=== PATIENT | male | born 1995 | race Caucasian/White ===

== ENCOUNTER 2016-08-12 01:16 | Emergency (ER) | payer OTHER ==
--- NOTE | 2016-08-12 16:22 | ED CLINICAL REPORT ---
Clinical Report - Physicians/Mid Levels Located Within [facility] [address] [place] [address] 08/12/2016 1:16 Patient: REINIER HILL I Time Seen: 0121. Arrived- (police). Historian- patient (police). Referred (law enforcement). HISTORY OF PRESENT ILLNESS Chief Complaint: SUICIDAL THOUGHTS. This started two weeks ago. Has been depressed. Has had suicidal thoughts. Has highly lethal plan for suicide by jumping from height. The symptoms are described as severe. No injury is present. Additional history - recently released from nursing home. reports "family want's nothing to do with me". Similar symptoms previously: REVIEW OF SYSTEMS No headache, chest pain, abdominal pain, fever or skin rash. All systems otherwise negative, except as recorded above. PAST HISTORY See nurses notes. Medications: None. Allergies: Penicillin. SOCIAL HISTORY Smoker- current status unknown. Alcohol use. History of drug use. No social support. No place to stay. ADDITIONAL NOTES The nursing notes have been reviewed. PHYSICAL EXAM Vital Signs: 08/12/2016 01:27 BP: 117/85. HR: 123. RR: 20. O2 saturation: 96%. Temp: 98.3 F. Pain level now: 10/10. Blood pressure normal. Oxygen saturation normal. Appearance: Alert. No acute distress. Appearance is normal. Eyes: Pupils equal, round and reactive to light. Neck: Normal inspection. Neck supple. CVS: Normal heart rate and rhythm. Heart sounds normal. Respiratory: Chest nontender. Abdomen: Soft and nontender. Skin: Skin warm and dry. Normal skin color. Normal skin turgor. Extremities: Extremities exhibit normal ROM. No lower extremity edema. Psych / Neuro: Oriented X 3. Appears depressed. (congruent affect). Speech normal. Thought process normal. Cranial nerves normal (as tested). No cerebellar findings. No motor deficit. No sensory deficit. Reflexes normal. LABS, X-RAYS, AND EKG Laboratory Tests: CBC w Diff: (REBECA: 08/12/2016 01:45) ( MsgRcvd 08/12/2016 02:04) Final results Test Result Flag Units (Reference) WHITE BLOOD COUNT 9.2 K/uL (4.5-11.5) RED BLOOD COUNT 4.76 M/uL (4.50-5.90) HEMOGLOBIN 14.5 gm/dL (13.5-17.5) HEMATOCRIT 42.6 % (41.0-53.0) MEAN CELL VOLUME 90 fL (80-100) MEAN CORPUSCULAR HGB 30 pg (26-34) MEAN CORPUSCULAR HGB CONC 34 g/dL (31-37) RED CELL DISTRIBUTION WIDTH 13.7 % (11.6-14.8) PLATELET COUNT 328 K/uL (150-400) NEUTROPHIL % 74.7 % (50-75) LYMPH % 19.1 L % (25-40) MONO % 5.6 % (3-14) EOSINOPHIL % 0.3 % (0-4) BASOPHIL % 0.3 % (0-2) PT with INR: (REBECA: 08/12/2016 01:45) ( [facility] 08/12/2016 02:23) Final results Test Result Flag Units (Reference) INR 1.0 (0.8-1.2) Low Intensity Therapy: INR 1.5-2.0 PT range 18.5-23.1Mod.Intensity Therapy: INR 2.0-3.0 PT range 23.1-31.5High Intensity Therapy: INR 2.5-3.5 PT range 27.4-35.5High Intensity Therapy 2: INR 3.0-4.0 PT range 31.5-39.3 TSH: (REBECA: 08/12/2016 01:45) ( [facility] 08/12/2016 05:26) Final results Test Result Flag Units (Reference) THYROID STIMULATING HORMONE 0.409 uIU/mL (0.34-3.74) Urine Drug Screen: (REBECA: 08/12/2016 02:15) ( [facility] 08/12/2016 02:48) Final results Test Result Flag Units (Reference) AMPHETAMINE/METHAMPHETAMINE POSITIVE H (NEGATIVE) BARBITURATE NEGATIVE (NEGATIVE) BENZODIAZEPINE NEGATIVE (NEGATIVE) CANNABINOID POSITIVE H (NEGATIVE) COCAINE NEGATIVE (NEGATIVE) ECSTASY NEGATIVE (NEGATIVE) METHADONE NEGATIVE (NEGATIVE) OPIATE POSITIVE H (NEGATIVE) The urine drug screen is a qualitative screening test fordrug overdose and abuse. All screen results should beconsidered as presumptive.Drugs screened for are as follows:BenzodiazepinesCocaineAmphetamines/MetamphetaminesTHC (Tetrahydrocannabinol)OpiatesBarbituratesEcstasyMethadonePositive results are unconfirmed. For confirmation, notifythe lab for the specimen to be sent to the reference lab.All confirmations must be performed by a differentmethodology.The ingestion of natural herbal and plant productscontaining Ephedra/Ephedra metabolites can produce in urineone or more substances capable of cross reacting withamphetamine/methamphetamine immunoassays. These testsprovide a preliminary result only. A more specificalternative chemical method must be used to obtain aconfirmed analytical result. Salicylate Level: (REBECA: 08/12/2016 01:45) ( MsgRcvd 08/12/2016 02:35) Final results Test Result Flag Units (Reference) SALICYLATE <2.8 L mg/dL (2.8-20) CMP: (REBECA: 08/12/2016 01:45) ( MsgRcvd 08/12/2016 02:38) Final results Test Result Flag Units (Reference) GLUCOSE 115 H mg/dL (70-110) BUN 14 mg/dL (7-18) CREATININE 0.7 mg/dL (0.6-1.3) Estimated GFR >60 mL/min Estimated GFR- >60 mL/min Note: Persistent reduction over 3 months in eGFR<60 mL/min/1.73 m2 defines CKD. Patients with eGFR values>=60 mL/min/1.73 m2 may also have CKD if evidence ofpersistent proteinuria. Additional information may be foundat www.kidney.org. SODIUM 144 mmol/L (136-145) POTASSIUM 3.7 mmol/L (3.5-5.1) CHLORIDE 104 mmol/L (98-107) CARBON DIOXIDE 29 mmol/L (21-32) CALCIUM 9.0 mg/dL (8.5-10.1) TOTAL PROTEIN 7.8 g/dL (6.4-8.2) ALBUMIN 3.8 g/dL (3.3-5.0) BILIRUBIN, TOTAL 1.0 mg/dL (0.0-1.0) ALKALINE PHOSPHATASE 76 U/L (46-116) AST (SGOT) 32 U/L (15-37) ALT (SGPT) 35 U/L (12-78) ACETAMINOPHEN < 2.0 L ug/mL (10-30) ETHYL ALCOHOL <3 L mg/dL (3-10) . PROGRESS AND PROCEDURES Course of Care: the patient is a cooperative 20-year-old male presenting for evaluation of suicidal ideation. The patient reports having the idea of jumping off a bridge. method for suicidal ideation has high lethality. Patient will bemonitored here in the emergency department and medically cleared for psychiatric evaluation. Patient reports no ingestion history. Patient's workup was noted for the findings above. Workup does not show any acute abnormalities. Had discussion with patient in regards to his workup here in the emergency department andplan for transfer. Patient is agreeable to this at this time. Patient is also been evaluated bythe counselor and we are currently awaiting placement. Discussed with patient workup,diagnosis, and plan of care. All questions have been answered. Patient is agreeable to treatment plan. Patient was transferred without Incident. CLINICAL IMPRESSION Suicidal ideation (acute). Adjustment disorder with disturbance of conduct and depressed mood. Substance abuse- methamphetamines. (Electronically signed by Margarito Connor Dr. 08/19/2016 10:15)
--- NOTE | 2016-08-12 16:22 | ED ORDER SUMMARY ---
..... Patient: REINIER HILL I OrderSheet [facility] VisitID: [id number] [place] [address] 20y, M Registration Date/Time: 08/12/2016 ORDER SHEET Weight: 65.7 kg (stated) Allergies: Penicillin GENERAL ORDERS: CBC w Diff Urgent (01:08/12/2016 Salvador Wilson) (Ack 1:52 AMcQuoid ER Tech1) (1:53 AMcQuoid ER Tech1) CMP Urgent (:08/12/2016 Salvador Wilson) (Ack 1:52 AMcQuoid ER Tech1) (1:53 AMcQuoid ER Tech1) PT with INR Urgent (:08/12/2016 Salvador Wilson) (Ack 1:52 AMcQuoid ER Tech1) (1:53 AMcQuoid ER Tech1) Ethyl Alcohol Urgent (:08/12/2016 Salvador Wilson) (Ack 1:52 AMcQuoid ER Tech1) (1:53 AMcQuoid ER Tech1) Urine Drug Screen Urgent (:08/12/2016 Salvador Wilson) (Ack 1:52 AMcQuoid ER Tech1) (1:53 AMcQuoid ER Tech1) Acetaminophen Level Urgent (:08/12/2016 Salvador Wilson) (Ack 1:52 AMcQuoid ER Tech1) (1:53 AMcQuoid ER Tech1) Salicylate Level Urgent (:08/12/2016 Salvador Wilson) (Ack 1:52 AMcQuoid ER Tech1) (1:53 AMcQuoid ER Tech1) Suicide Precautions (:08/12/2016 Salvador Wilson) (1:42 HSoule) TSH Urgent (05:01 08/12/2016 Salvador Wilson) (5:04 AMcQuoid ER Tech1) MEDICATION ORDERS: IV FLUIDS: ORDER SHEET NOTES: [Electronically signed by Iesha Mcallister R.N. (19:53 08/12/2016)] [Electronically signed by Margarito Connor Dr. (10:15 08/19/2016)] [Electronically locked/signed by Iesha Mcallister R.N. (19:53 08/12/2016)]
--- NOTE | 2016-08-12 16:22 | ED ORDER SUMMARY ---
..... Patient: REINIER HILL I OrderSheet [facility] VisitID: [id number] [place] [address] 20y, M Registration Date/Time: 08/12/2016 ORDER SHEET Weight: 65.7 kg (stated) Allergies: Penicillin GENERAL ORDERS: CBC w Diff Urgent (01:08/12/2016 Salvador Wilson) (Ack 1:52 AMcQuoid ER Tech1) (1:53 AMcQuoid ER Tech1) CMP Urgent (:08/12/2016 Salvador Wilson) (Ack 1:52 AMcQuoid ER Tech1) (1:53 AMcQuoid ER Tech1) PT with INR Urgent (:08/12/2016 Salvador Wilson) (Ack 1:52 AMcQuoid ER Tech1) (1:53 AMcQuoid ER Tech1) Ethyl Alcohol Urgent (:08/12/2016 Salvador Wilson) (Ack 1:52 AMcQuoid ER Tech1) (1:53 AMcQuoid ER Tech1) Urine Drug Screen Urgent (:08/12/2016 Salvador Wilson) (Ack 1:52 AMcQuoid ER Tech1) (1:53 AMcQuoid ER Tech1) Acetaminophen Level Urgent (:08/12/2016 Salvador Wilson) (Ack 1:52 AMcQuoid ER Tech1) (1:53 AMcQuoid ER Tech1) Salicylate Level Urgent (:08/12/2016 Salvador Wilson) (Ack 1:52 AMcQuoid ER Tech1) (1:53 AMcQuoid ER Tech1) Suicide Precautions (:08/12/2016 Salvador Wilson) (1:42 HSoule) TSH Urgent (05:01 08/12/2016 Salvador Wilson) (5:04 AMcQuoid ER Tech1) MEDICATION ORDERS: IV FLUIDS: ORDER SHEET NOTES: [Electronically signed by Iesha Mcallister R.N. (19:53 08/12/2016)] [Electronically signed by Margarito Connor Dr. (10:15 08/19/2016)] [Electronically locked/signed by Iesha Mcallister R.N. (19:53 08/12/2016)]
--- NOTE | 2016-08-12 16:22 | ED NURSING NOTES ---
Clinical Report - Nurses [facility] [place] [address] 08/12/2016 1:16 [id number] Triage time 01:20 Aug 12 2016. Acuity: LEVEL 3. Chief Complaint: DEPRESSION and SUICIDAL THOUGHTS. SEPSIS SCREEN: Sepsis Screen: negative. Negative (no infection suspected/documented). KHADIJAH COMA SCORE: Khadijah Coma Scale: 15- eyes open spontaneously (4); best verbal response- oriented x 4 (5); best motor response- obeys commands (6). --01:34 Mi Tyson 01:27 08/12/16. BP: 117/85. HR: 123. RR: 20. O2 saturation: 96% on room air. Temp: 98.3 F (oral). Pain level now: 03/26. --01:34 Mi Tyson. Weight: 65.7 kg stated. Height/Length: 70 inches Per Patient. BMI: 20.8. --01:32 Mi Tyson. Medications None. --01:31 Mi Tyson. Medication/allergy information source: the patient. --01:34 Mi Tyson. Allergies Penicillin. --01:31 Mi Tyson. History Historian: patient. Arrived (Police, not in custody) and unaccompanied. Primary physician (none). Onset: just prior to arrival. ( Police report they came to a call to a convenience store where the patient was caught stealing alcohol. Store staff declined to press charges. Officers asked the patient what was going on, he reported that he was depressed and wanted to drink a bottle of alcohol and not wake up. Patient reported to officers that he wanted to jump off a bridge tonight but a friend intervened. Patient asked for help and officers brought patient into the hospital. Patient reports to nurse that he has been depressed. He states he is coming down off drugs and has no friends or family that want to be around him. He reports being homeless and recently out of senior care. Additionally patient reports all over body pain due to withdrawal. He reports years of drug abuse with multiple attempts to get clean.). PAST MEDICAL HX: Immunizations: status is unknown. SOCIAL HX: Light tobacco smoker (cigarette)- less than 1/2 a pack per day. Occasional alcohol use. History of drug use: narcotics, heroin, methamphetamines. Recently used drugs yesterday. No infectious disease exposure. ABUSE ASSESSMENT: No report of abuse. SELF HARM ASSESSMENT: A self harm assessment was performed. The patient answered "yes" to the question "Have you recently felt down, depressed, or hopeless?", "Have you noticed less interest or pleasure in doing things?", "Do you have thoughts of harming or killing yourself?" and "Are you here because you tried to hurt yourself?" and "no" to the question "Have you ever tried to hurt yourself before today?", "Have you recently had thoughts about harming or killing others?" and "Do you have any dangerous items in your possession?". The patient reports their behavior. A further in-depth assessment is planned. He has been placed under frequent supervision. He was placed in direct sight of the nurses station. Clothes and valuables were removed and placed at the nurses station. The ED physician has been notified. FALL RISK ASSESSMENT: Fall risk assessment completed. No fall risk identified. NUTRITIONAL RISK ASSESSMENT: The nutritional risk assessment revealed no deficiencies. FUNCTIONAL ASSESSMENT: Functional assessment: no impairments noted. LEARNING NEEDS ASSESSMENT: The learning needs assessment revealed no barriers. SKIN INTEGRITY ASSESSMENT: Skin integrity risk assessment completed. No skin integrity risk identified. --:34 Mi Tyson. PROBLEMS: Arthritis. Spina Bifida Occulta. --: Mi Tyson. ADDITIONAL SURGERIES: Adenoidectomy. Tonsillectomy. --: Mi Tyson. Interventions ID band on patient. To treatment room. --:34 Mi Tyson. PHYSICAL ASSESSMENT Ambulatory to room. Patient gowned. GENERAL / NEURO / PSYCH: Alert. Appears in no acute distress. Speech within normal limits. Patient appears calm and cooperative. Good eye contact. Patient appears unkempt. RESPIRATORY: Respirations not labored. CVS: Cardiac rhythm: sinus tachycardia; (123). GI / : Abdomen soft and nontender. SKIN: Skin is warm and dry. --01:35 Mi Tyson. NURSING PROGRESS NOTES The initial plan of care for this patient has been created This plan of care was discussed with the patient. Patient gowned. Suicide precautions initiated: a safety sweep of the room has been completed. Room made safe and stripped of hazardous items. Frequent one on one supervision, checks performed every 15 minutes, clothing / valuables removed and placed at the nurse's station. Patient placed in direct sight of the nurse's station. ED Physician has been notified. Two patient identifiers checked. Call light placed in reach. Side rails up x 1. Bed placed in lowest position. Brakes of bed on. Patient ready for evaluation- chart flagged and ED physician notified. ( Food and fluids provided to patient). --01:35 Mi Tyson Patient ID band checked for patient name and birthdate: patient confirmed. Blood samples drawn from the right antecubital space with Vacutainer 23g by nurse ; labeled in presence of the patient and sent to lab: rainbow set. Additional blood sent to lab. --01:49 Mi Tyson 03:09 08/12/16. Suicide precautions maintained: a safety sweep of the room has been completed. The patient is sleeping. --04:09 Mi Tyson 04:10 08/12/16. Suicide precautions maintained. The patient reports no complaints and he is resting quietly. ( Food and fluids provided, additional warm blankets given.). --04:10 Mi Tyson ( PAT team contacted, ETA 0400 to assess patient placement and plan of care. Patient aware of intended plan of care.). --04:10 Mi Tyson ( PAT team at bedside, patient being assessed. Patient reports to PAT team that he has a seizure disorder related to withdrawal. PAT team will attempt to find placement but reports some difficulty in placing seizure patients.). --04:45 Mi Tyson Suicide precautions maintained. The patient reports no complaints and he is sleeping. --05:36 Mi Tyson ( PAT team unable to find bed placement at this time. Patient will be reassessed at 1400 tomorrow. Patient resting. Breakfast tray ordered.). --05:51 Mi Tyson Suicide precautions maintained. The patient is sleeping. --06:49 Mi Tyson Care transferred and report given (Mariann RN). --06:58 Mi Tyson The patient reports no complaints and he is sleeping. --11:32 Tamy Osborne R.N. Care transferred and report given (JUDITH Garrido). --13:11 Tamy Osborne R.N. 11:50 08/12/16. BP: 145/62. HR: 92. RR: 16. O2 saturation: 100%. Pain level now 0/10. --13:15 Tamy Osborne R.N. 09:30. ( Took Breakfast in to patient's room, tried to wake PT up for breakfast. He turned and went back to bed.). --15:16 Odalis Santillan 13:15. ( Took lunch in to patient's room, asked patient if he needed anything else to drink in addition to the juice, he requested ice water. Suicide precautions observed.). --13:28 Odalis Santillan late entry - 14:00 PM. Reassurance given. Suicide precautions initiated. Room made safe. Frequent one on one supervision. Patient placed in direct sight of the nurse's station. ( Attempted to get VS, pt refusing at this time. Safety precautions in place, pt is calm otherwise, awaiting on PATS evalution). GENERAL / NEURO / PSYCH: Denies anxiety, anger or restlessness. Patient appears calm and cooperative. Two patient identifiers checked. Call light placed in reach. Side rails up x 1. Bed placed in lowest position. Brakes of bed on. --19:05 Iesha Mcallister R.N. DISPOSITION / DISCHARGE Condition at departure: stable. The goals identified in the patient's plan of care were met. ( Pt safety maintained, being transferred to [facility]). No learning barriers present. Discharge instructions provided and reviewed with the patient. Transferred to [facility]. Summary of care provided to transport team and transfer facility via paper and fax. Transported via ambulance by transport team. FALL RISK ASSESSMENT: Fall risk assessment completed. No fall risk identified. KHADIJAH COMA SCORE: Khadijah Coma Scale: 15- eyes open spontaneously (4); best verbal response- oriented x 4 (5); best motor response- obeys commands (6). --19:02 Iesha Mcallister R.N. 19:00 08/12/16. BP: 128/79 (regular adult cuff) taken on the right arm, via an automated monitor, while lying. HR: 103. RR: 16. O2 saturation: 98% on room air. Temp: 98.2 F (oral). Pain level now: 0/10. --19:02 Iesha Mcallister R.N. Departure time: 1930 PM. Report was given to a nurse via a phone call. Report included patient's care, treatment, medications, reviewed medication reconcilliation, and condition (including any recent changes or anticipated changes). All questions were answered. Report was acknowledged and care was transferred. (SARTHAK Wadsworth at central unit). --19:53 Iesha Mcallister R.N. Locked/Released at 08/12/2016 19:53 by Iesha Mcallister R.N.
--- NOTE | 2016-08-19 10:16 | ED MED RECONCILIATION SUMMARY ---
Patient: REINIER HILL I Medication Reconciliation Report [facility] VisitID: [id number] [address] [place] [place] [address] 20y, M Registration Date/Time: 08/12/2016 Weight: 65.7 kg Height/Length: 70 in. BMI: 20.8 ALLERGIES: Penicillin The patient's Home Medications are listed below: NONE. The source(s) of the original Home Medication information: patient The following Medications were given to the patient in the Emergency Department: None. The following Medications were prescribed to the patient: None.
--- NOTE | 2016-08-19 10:16 | ED DISCHARGE INSTRUCTIONS ---
Patient: REINIER HILL I General Instructions [facility] VisitID: [id number] [address] [place] [address] 20y, M Registration Date/Time: 08/12/2016 Suicidal ideation (acute). Adjustment disorder with disturbance of conduct and depressed mood. Substance abuse- methamphetamines. (Electronically signed by Margarito Connor Dr. 08/19/2016 10:15)
--- NOTE | 2016-08-19 10:16 | ED MED RECONCILIATION SUMMARY ---
Patient: REINIER HILL I Medication Reconciliation Report [facility] VisitID: [id number] [address] [place] [address] 20y, M Registration Date/Time: 08/12/2016 Weight: 65.7 kg Height/Length: 70 in. BMI: 20.8 ALLERGIES: Penicillin The patient's Home Medications are listed below: NONE. The source(s) of the original Home Medication information: patient The following Medications were given to the patient in the Emergency Department: None. The following Medications were prescribed to the patient: None.
--- NOTE | 2016-08-19 10:16 | ED MAR SUMMARY ---
..... Medication Administration Record [facility] [address] [place], [place] [id number] Patient: REINIER HILL I Visit ID: [id number] 20y, M Weight: 65.7 kg Height/Length: 70 in BMI: 20.8 ALLERGIES: Penicillin
--- NOTE | 2016-08-19 10:16 | ED MAR SUMMARY ---
..... Medication Administration Record [facility] [address] [place], [place] [id number] Patient: REINIER HILL I Visit ID: [id number] 20y, M Weight: 65.7 kg Height/Length: 70 in BMI: 20.8 ALLERGIES: Penicillin
--- NOTE | 2016-08-19 10:16 | ED DISCHARGE INSTRUCTIONS ---
Patient: REINIER HILL I General Instructions [facility] VisitID: [id number] [address] [place] [address] 20y, M Registration Date/Time: 08/12/2016 Suicidal ideation (acute). Adjustment disorder with disturbance of conduct and depressed mood. Substance abuse- methamphetamines. (Electronically signed by Margarito Connor Dr. 08/19/2016 10:15)
== END 2016-08-12 19:00 ==
LOC: ED SRH 01:16
DX: R45.851 Suicidal ideations (principal); F43.24 Adjustment disorder with disturbance of conduct; F43.21 Adjustment disorder with depressed mood; F15.10 Other stimulant abuse, uncomplicated; Z88.0 Allergy status to penicillin
CPT/HCPCS: 90100; 92010; 92760; 92761; 92762; 92763; 92764; 92765; 92766; 92767; 92780; 93140; 94060; 95059; 97000